=== PATIENT | male | born 1940 | race Caucasian/White ===

== ENCOUNTER → 2017-01-24 | Day surgery (SDC) | payer MEDICARE, OTHER ==
[~2017-01-24] MED LIST: ALBUTEROL17 GM INH; ALLOPURINOL300 MG PO; ANORO ELLIPTA1 EACH INH; ASPIR-TRIN325 MG PO; ASPIRIN PO; CARVEDILOL25 MG PO; COMBIVENT INH14.7 GM INH; COREG PO; COUMADIN5 MG PO; CRESTOR10 MG PO; FISH OIL SOFTGE1 CA1 PO; FLAGYL250 M1; IMDUR PO; LAMISIL PO; LASIX20 MG PO; LEVAQUIN750 MG; LISINOPRIL PO; LORTAB 5/500 TA1 TA1; NITROGYLCERIN SUBLINGUAL; OMEPRAZOLE20 M2 PO; OMEPRAZOLE40 MG PO; PREDNISONE10 MG/DOSE PO; PRILOSEC PO; PRILOSEC40 MG PO; SLO-NIACIN500 MG PO; VESICARE PO; ZESTRIL40 MG PO; ZITHROMAX PO; ZOCOR PO; ZYRTEC10 M2 PO
--- NOTE | ~2017-01-24 | OR ---
Unit #: [id number] #: [id number] Patient: FARHEEN GUNTER [id number] [address] [place], [place] [address] [id number] O MR#: [id number] NAME: FARHEEN GUNETR. ROOM: Date of Procedure: 01/24/2017 Admission Date: 01/24/2017 Surgeon: Zane Brooks M.D. : 1940 Attending Physician: Zane Brooks M.D. Primary Care Physician: Hilario Jones M.D. OPERATIVE REPORT PRIMARY CARE PHYSICIAN Dr. Hilario Jones. PREOPERATIVE DIAGNOSES Dyspepsia, gastroesophageal reflux. In addition, the patient has come for colorectal cancer surveillance. He has personal history of colon polyps. PROCEDURES PERFORMED Upper gastrointestinal endoscopy and biopsy as well as colonoscopy with polypectomy. POSTOPERATIVE DIAGNOSES For upper endoscopy: 1. The patient had mass in the distal esophagus. This was pliable and soft and was extensively biopsied. The mass was present just above the GE junction and was about 1.5 cm in size. 2. Rest of the examination up to third part of duodenum was normal. For colonoscopy: 1. There were total of 4 polyps, one in the ascending colon, 3 in the transverse colon. All were sessile and small ranging in size from 3 mm to 8 mm. All were removed using snare polypectomy, retrieved and sent for histology. 2. Mild sigmoid and descending colon diverticulosis. 3. Rest of the examination up to cecum and terminal ileum was normal. The quality of the prep was excellent. RECOMMENDATIONS 1. Follow up results of the polyp histology as well as biopsies obtained of the esophageal mass. 2. The patient will be followed up in the office in 6 to 8 weeks' time. 3. In the meantime, he will increase the dose of his omeprazole to 40 mg p.o. daily from 20 mg p.o. daily. SEDATION USED MAC. DESCRIPTION OF PROCEDURE Following detailed explanation of potential risks and complications of an upper endoscopy and a colonoscopy, namely perforation, bleeding, and complications related to sedation, the patient was brought to GI lab and laid in the left lateral decubitus position. Lubricated tip of the Unit #: [id number] #: [id number] Patient: HODNETT,FARHEEN J Olympus video upper endoscope was passed through the bite block into the proximal esophagus under direct vision. The entire esophageal mucosa was examined. The patient was noted to have a mass in the distal esophagus. This had a polypoid appearance and was present just above the gastroesophageal junction. The latter was extensively biopsied. No stricture or esophagitis was seen and no evidence of Pulido esophagus was seen. The scope was then advanced into the gastric cavity and the latter was insufflated. Mucosa of the fundus, body, and antrum was examined and appeared normal. Pylorus was intubated with visualization of the normal duodenal bulb and second and third part of the duodenum. Upon withdrawal and retroflexion, incisura, cardia, and greater curve examined and no additional findings noted. The scope was withdrawn in the distal esophagus. Extensive biopsies obtained from the esophageal mass and sent for histology. The entire esophageal mucosa was examined all the way up to pharynx, no additional findings noted. The examination table was then turned by 180 degrees and the patient positioned for a colonoscopy. A digital rectal examination was performed, which was normal. Lubricated tip of the Olympus video colonoscope was inserted through the anus and advanced under direct vision. The scope was advanced and passed up to sigmoid into descending colon. Scant small diverticula were seen in this area. The scope tip was then navigated all the way up to cecum with visualization of ileocecal valve and the appendiceal orifice. Preparation was excellent with good visualization and photodocumentation was obtained. Successive segments of the colonic mucosa were examined upon withdrawal. The patient was noted to have 4 polyps, 3 in the transverse colon and 1 in the ascending colon. All were small and sessile, 3 to 8 mm each. All were removed using snare polypectomy. They were retrieved and sent for histology. No additional polyps noted. Other than the scant diverticula seen in the left side, no other abnormalities were found. The patient did not have any hemorrhoids at anal verge. The scope was then withdrawn. The patient returned to the recovery area. He tolerated the procedure without any postprocedure complications. Dictated byMaxine Ocampo TD: 01/25/2017 04:16 JOB #: [id number] OPERATIVE REPORT X Zane Brooks MD PROCEDURE OPERATIVE NOTE
== END | disposition home or self-care (01) ==
LOC: COPS 11:35
DX: Z12.11 Encounter for screening for malignant neoplasm of colon (principal); C16.0 Malignant neoplasm of cardia; D12.2 Benign neoplasm of ascending colon; D12.3 Benign neoplasm of transverse colon; K57.30 Diverticulosis of large intestine without perforation or abscess without bleeding; I10 Essential (primary) hypertension; J44.9 Chronic obstructive pulmonary disease, unspecified; K21.9 Gastro-esophageal reflux disease without esophagitis; M19.90 Unspecified osteoarthritis, unspecified site; Z85.46 Personal history of malignant neoplasm of prostate; Z86.73 Personal history of transient ischemic attack (TIA), and cerebral infarction without residual deficits; Z79.82 Long term (current) use of aspirin; Z79.899 Other long term (current) drug therapy; Z95.810 Presence of automatic (implantable) cardiac defibrillator; Z98.890 Other specified postprocedural states
CPT/HCPCS: 87077; 88305; 88360

== ENCOUNTER → 2017-02-19 | Outpatient (CLI) | payer MEDICARE, OTHER ==
[2017-02-18 16:51] LABS: POC - CREATININE 1.5 mg/dL (0.64-1.27)
--- NOTE | ~2017-02-19 | CT5 ---
[facility] A Service of [facility] RADIOLOGY TEXT RESULTS PATIENT: FARHEEN GUNTER LOCATION: [facility] : 38 UNIT #: [id number] AGE: [address]: Edgar Hayes MD SEX: M ORDER DR: [id number] [facility] [address] [place], [place] [address] [id number] O MR#: [id number] Acc #: [id number] NAME: FARHEEN GUNTER. : 1940 SEX: M STUDY DATE/TIME: 02/19/2017 10:28 UNIT: [facility] ROOM: STUDY DESCRIPTION: CT Abdomen W Cont Attending Physician: Edgar Hayes M.D. Referring Physician: Edgar Hayes M.D. Ordering Physician: Edgar Hayes M.D. Primary Care Physician: Hilario Jones M.D. 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 Observation for metastatic disease. PROCEDURE Contrast-enhanced CT of the abdomen. COMPARISON 03/14/[address] exam was performed with one or more of the following radiation dose reduction techniques: automatic exposure control, adjustment of mA and/or kV according to patient size, and iterative reconstruction. FINDINGS Refer to the separately dictated chest CT for thoracic findings. Liver, spleen show no focal lesion. The spleen measures 13.9 cm. Kidneys, adrenal glands, pancreas, gallbladder unremarkable. Bowel loops are nondilated. Colonic diverticula with moderate colonic stool burden. No appreciable distal esophageal or gastric mass by CT. No aggressive appearing bone lesion. IMPRESSION 1. No appreciable distal esophageal or gastric mass by CT. 2. No evidence for metastatic disease in the abdomen. 3. Splenomegaly. [facility] A Service of [facility] RADIOLOGY TEXT RESULTS PATIENT: FARHEEN GUNTER LOCATION: [facility] : 38 UNIT #: [id number] AGE: [address]: Edgar Hayes MD SEX: M ORDER DR: Dictated by... Pablo Zapata M.D. THIS IS AN ELECTRONICALLY VERIFIED REPORT Pablo Zapata M.D. at 02/20/2017 9:38 AM Lucho TD: 02/19/2017 12:22 JOB #: [id number] MEDICAL IMAGING REPORT Page 1 of 1 COPY
--- NOTE | ~2017-02-19 | CT55 ---
[facility] A Service of [facility] RADIOLOGY TEXT RESULTS PATIENT: FARHEEN GUNTER LOCATION: [facility] : 38 UNIT #: [id number] AGE: [address]: Edgar Hayes MD SEX: M ORDER DR: [id number] [facility] [address] [place], [place] [address] [id number] O MR#: [id number] Acc #: [id number] NAME: FARHEEN GUNTER. : 1940 SEX: M STUDY DATE/TIME: 02/19/2017 10:28 UNIT: [facility] ROOM: STUDY DESCRIPTION: CT Chest W Con Attending Physician: Edgar Hayes M.D. Referring Physician: Edgar Hayes M.D. Ordering Physician: Edgar Hayes M.D. Primary Care Physician: Hilario Jones M.D. MEDICAL IMAGING REPORT This report is preliminary unless electronic signature is present EXAM CT chest with contrast INDICATIONS Malignant neoplasm of cardia. Staging. 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 Observation for metastatic disease. PROCEDURE Contrast-enhanced CT of the chest 100 mL of Isovue-370 COMPARISON CTA of the chest from 03/06/[address] exam was performed with one or more of the following radiation dose reduction techniques: automatic control, adjustment of mA and/or kV according to patient size, and iterative reconstruction. FINDINGS Emphysema. No suspicious pulmonary nodule. There is a 4-5 mm nodule in the lateral right lower lobes is unchanged. It is stable dating back to 2012 in keeping with benign finding. Cardiomegaly. Coronary artery calcification pacer placement. There are a few small mediastinal lymph nodes that are stable. No appreciable esophageal mass on this study. No aggressive appearing bone lesion. IMPRESSION 1. No convincing evidence for metastatic disease in the chest. No appreciable esophageal mass seen on this study. 2. Emphysema. Dictated by... [facility] A Service [facility] RADIOLOGY TEXT RESULTS PATIENT: FARHEEN GUNTER LOCATION: [facility] : 38 UNIT #: [id number] AGE: [address]: Edgar Hayes MD SEX: M ORDER DR: Pablo Zapata M.D. THIS IS AN ELECTRONICALLY VERIFIED REPORT Pablo Zapata M.D. at 02/20/2017 9:38 AM OSCAR/milagro TD: 02/19/2017 12:33 JOB #: [id number] MEDICAL IMAGING REPORT Page 1 of 1 COPY
[2017-02-19 09:50] LABS: POC - CREATININE 1.28 mg/dL (0.64-1.27)
== END | disposition home or self-care (01) ==
LOC: CCAT 09:13
PROVIDERS: Internal Medicine Medical Oncology
DX: C16.0 Malignant neoplasm of cardia (principal); R16.1 Splenomegaly, not elsewhere classified; J43.9 Emphysema, unspecified
CPT/HCPCS: 71260; 74160; 82565; Q9967